=== PATIENT | female | born 1995 | race Caucasian/White ===

== ENCOUNTER 2018-11-13 09:49 | Emergency (ER) | payer OTHER ==
[2018-11-13] MEDS: KETOROLAC 30 MG INJ IM (10:35)
[2018-11-13] MEDS: ONDANSETRON (ODT) 4 MG TAB ODT (10:35)
== END 2018-11-13 11:20 | disposition home or self-care (01) ==
LOC: FTE 09:49
DX: H57.9 Unspecified disorder of eye and adnexa (principal); Z91.040 Latex allergy status
CPT/HCPCS: 81025; 96372; 99284-25